=== PATIENT | female | born 1970 | race African-American/Black ===

== ENCOUNTER 2017-07-09 15:18 | Emergency (ER) | payer BC ==
[~2017-07-09] VITALS: Ht 167.6 cm; Wt 147.9 kg
[~2017-07-09 15:18] MED LIST: AMITRIPTYLINE H25 M2 PO; TOPAMAX50 MG PO
[2017-07-09 15:28] LABS: URINE BILIRUBIN NEGATIVE (Negative); URINE BLOOD 2+ (Negative); URINE CLARITY CLEAR; URINE COLOR YELLOW; URINE GLUCOSE-RANDOM* 3+ (Negative); URINE KETONES TRACE (Negative); URINE LEUKOCYTES-REFLEX NEGATIVE (Negative); URINE NITRITE-REFLEX NEGATIVE (Negative); URINE PROTEIN (DIPSTICK) NEGATIVE (Negative); URINE UROBILINOGEN 0.2 E.U./dl (0.2-1.0)
[2017-07-09 15:38] LABS: BACTERIA-REFLEX 1-9 Few /HPF (None Seen); CASTS None Seen /LPF (None Seen); SQUAMOUS 4-10 Moderate /LPF (0-3); URINE RBC 3-10 Few /HPF (0-2); URINE WBC-REFLEX 0-5 Rare /HPF (0-5)
[2017-07-09 15:39] LABS: CRYSTALS None Seen /LPF (None Seen)
[2017-07-09 15:50] LABS: BE(vivo) 0.6 mmol/L (-2 to +3); PCO2 VENOUS 44.9 mmHg (41.0-51.0); PO2 VENOUS 26.2 mmHg (35.0-45.0)
[2017-07-09 16:02] LABS: ABSOLUTE NEUTROPHILS 7.7 thou/uL (1.4-8.2); BASOPHILS 0.7 % (0.0-2.0); EOSINOPHILS 1.5 % (0.0-3.0); HEMATOCRIT 34.2 % (37.0-47.0); LYMPHOCYTES 16.9 % (24.0-44.0); MCH 25.3 pg (26.0-34.0); MCHC 32.3 g/dL (28.0-37.0); MCV 78.3 fL (80.0-100.0); MONOCYTES 4.9 % (1.0-8.0); PLATELET COUNT 364 thou/uL (150-400); RBC 4.36 mil/uL (4.20-5.00); RDW 17.8 % (10.5-14.5); WBC 10.2 thou/uL (4.0-11.0)
[2017-07-09 16:16] LABS: CALCIUM 8.9 mg/dL (8.5-10.1); CREATININE 1.3 mg/dL (0.6-1.0); POTASSIUM 4.6 mmol/L (3.5-5.1)
[2017-07-09 16:22] LABS: ALBUMIN 2.9 g/dL (3.4-5.0); TOTAL BILIRUBIN 0.3 mg/dL (<0.1-1.0); TOTAL PROTEIN 8.9 g/dL (6.4-8.2)
[2017-07-09 19:15] LABS: BE(vivo) -0.8 mmol/L (-2 to +3); HCO3 25.2 mmol/L (22.0-26.0); PCO2 VENOUS 47.3 mmHg (41.0-51.0); PO2 VENOUS 36.4 mmHg (35.0-45.0)
[2017-07-09] MEDS ORDERED: KEFLEX500 M1 PO (19:16)
[2017-07-09 19:41] VITALS: BP 122/66
== END 2017-07-09 19:44 | disposition home or self-care (01) ==
LOC: ER 15:18
PROVIDERS: Emergency Medicine
DX: E11.65 Type 2 diabetes mellitus with hyperglycemia (principal); N39.0 Urinary tract infection, site not specified; G43.909 Migraine, unspecified, not intractable, without status migrainosus; Z90.49 Acquired absence of other specified parts of digestive tract

== ENCOUNTER 2018-12-04 19:19 | Emergency (ER) | payer BC ==
[~2018-12-04] VITALS: Ht 167.6 cm; Wt 140.6 kg
[~2018-12-04 19:19] MED LIST changes: +KEFLEX500 M1 PO
[2018-12-04 21:17] LABS: ABSOLUTE NEUTROPHILS 6.4 thou/uL (1.4-8.2); BASOPHILS 0.8 % (0.0-2.0); EOSINOPHILS 2.1 % (0.0-3.0); HEMATOCRIT 32.4 % (37.0-47.0); HEMOGLOBIN 10.5 gm/dL (12.0-15.0); LYMPHOCYTES 22.2 % (24.0-44.0); MCH 25.6 pg (26.0-34.0); MCHC 32.4 g/dL (28.0-37.0); MONOCYTES 5.6 % (1.0-8.0); PLATELET COUNT 361 thou/uL (150-400); POLYS 69.3 % (36.0-66.0); RDW 16.8 % (10.5-14.5); WBC 9.2 thou/uL (4.0-11.0)
[2018-12-04 21:28] LABS: CALCIUM 8.7 mg/dL (8.5-10.1); CREATININE 1.1 mg/dL (0.6-1.0); POTASSIUM 3.5 mmol/L (3.5-5.1)
[2018-12-04 21:32] LABS: ALBUMIN 2.8 g/dL (3.4-5.0); MAGNESIUM 1.6 mg/dL (1.8-2.4); TOTAL BILIRUBIN 0.1 mg/dL (<0.1-1.0); TOTAL PROTEIN 7.6 g/dL (6.4-8.2)
[2018-12-04 21:53] VITALS: BP 133/67
[2018-12-04] MEDS ORDERED: IRON325 PO (21:57)
== END 2018-12-04 22:06 | disposition home or self-care (01) ==
LOC: ER 19:19
PROVIDERS: Physician Assistant
DX: D64.9 Anemia, unspecified (principal); R20.2 Paresthesia of skin; G43.409 Hemiplegic migraine, not intractable, without status migrainosus; Z90.49 Acquired absence of other specified parts of digestive tract

== ENCOUNTER 2019-05-27 19:02 | Emergency (ER) | payer BC ==
[~2019-05-27] VITALS: Ht 170.2 cm; Wt 141.5 kg
[~2019-05-27 19:02] MED LIST changes: +IRON325 PO
[2019-05-27 21:10] VITALS: BP 148/100
== END 2019-05-27 21:10 | disposition home or self-care (01) ==
LOC: ER 19:02
DX: R20.2 Paresthesia of skin (principal); E66.01 Morbid (severe) obesity due to excess calories; G43.409 Hemiplegic migraine, not intractable, without status migrainosus; Z68.42 Body mass index [BMI] 45.0-49.9, adult; Z90.49 Acquired absence of other specified parts of digestive tract

== ENCOUNTER 2020-06-01 16:51 | Emergency (ER) | payer BC ==
[~2020-06-01] VITALS: Ht 165.1 cm; Wt 140.6 kg
[2020-06-01 18:02] LABS: HEMATOCRIT 35.4 % (37.0-47.0); HEMOGLOBIN 11.3 gm/dL (12.0-15.0); MCH 25.9 pg (26.0-34.0); MCHC 31.9 g/dL (28.0-37.0); MCV 81.1 fL (80.0-100.0); RBC 4.37 mil/uL (4.20-5.00); RDW 16.3 % (10.5-14.5); WBC 13.2 thou/uL (4.0-11.0)
[2020-06-01 18:34] LABS: CALCIUM 9.3 mg/dL (8.5-10.1); CREATININE 1.5 mg/dL (0.6-1.0); POTASSIUM 3.4 mmol/L (3.5-5.1)
[2020-06-01 18:41] LABS: ALBUMIN 3.3 g/dL (3.4-5.0); TOTAL BILIRUBIN 0.3 mg/dL (0.2-1.0)
[2020-06-01 19:05] LABS: URINE BILIRUBIN NEGATIVE (Negative); URINE BLOOD 2+ (Negative); URINE CLARITY CLEAR; URINE COLOR YELLOW; URINE GLUCOSE-RANDOM* NEGATIVE (Negative); URINE KETONES 1+ (Negative); URINE NITRITE-REFLEX NEGATIVE (Negative); URINE PROTEIN (DIPSTICK) NEGATIVE (Negative); URINE SPECIFIC GRAVITY 1.025 (1.005-1.035); URINE UROBILINOGEN 0.2 E.U./dl (0.2-1.0)
[2020-06-01 19:07] LABS: URINE LEUKOCYTES-REFLEX 1+ (Negative)
[2020-06-01 19:41] LABS: CASTS None Seen /LPF (None Seen); MUCUS None Seen strn/LPF (None Seen); SQUAMOUS 4-10 Moderate /LPF (0-3)
[2020-06-01 19:42] LABS: CRYSTALS None Seen /LPF (None Seen); URINE RBC 0-2 Rare /HPF (0-2); URINE WBC-REFLEX 6-15 Few /HPF (0-5)
[2020-06-01] MEDS ORDERED: KEFLEX500 M1 PO (19:47)
[2020-06-01 20:01] VITALS: BP 121/70
== END 2020-06-01 20:02 | disposition home or self-care (01) ==
LOC: ER 16:51
PROVIDERS: Nurse Practitioner Family
DX: N39.0 Urinary tract infection, site not specified (principal); Z90.49 Acquired absence of other specified parts of digestive tract

== ENCOUNTER 2020-10-22 14:34 | Emergency (ER) | payer BC ==
[~2020-10-22] VITALS: Ht 165.1 cm; Wt 144.2 kg
[2020-10-22 14:51] VITALS: BP 154/67
== END 2020-10-22 14:52 | disposition home or self-care (01) ==
LOC: ER 14:34
DX: Z53.21 Procedure and treatment not carried out due to patient leaving prior to being seen by health care provider (principal); R42 Dizziness and giddiness